=== PATIENT | female | born 1960 | race Hispanic/Latino ===

== ENCOUNTER 2022-11-22 09:59 | Outpatient (CLI) | payer BC | END 2022-11-22 10:00 | disposition home or self-care (01) | LOC: CSHMAMMO 09:59 | PROVIDERS: ATTEND Obstetrics & Gynecology | DX: Z12.31 Encounter for screening mammogram for malignant neoplasm of breast (principal); Z80.3 Family history of malignant neoplasm of breast; Z90.11 Acquired absence of right breast and nipple; Z98.82 Breast implant status | CPT/HCPCS: 77063; 77067 ==

== ENCOUNTER 2022-12-05 10:43 | Outpatient (CLI) | payer BC | END 2022-12-05 10:44 | disposition home or self-care (01) | LOC: CSHMAMMO 10:43 | PROVIDERS: ATTEND Obstetrics & Gynecology | DX: Z13.820 Encounter for screening for osteoporosis (principal); M85.89 Other specified disorders of bone density and structure, multiple sites | CPT/HCPCS: 77080 ==

== ENCOUNTER 2023-03-13 07:49 | Outpatient (CLI) | payer BC | END 2023-03-13 07:50 | disposition home or self-care (01) | LOC: CSHULT 07:49 | PROVIDERS: ATTEND Internal Medicine Gastroenterology | DX: R07.89 Other chest pain (principal); R10.13 Epigastric pain; K82.4 Cholesterolosis of gallbladder | CPT/HCPCS: 76705 ==

== ENCOUNTER 2023-11-27 09:37 | Outpatient (CLI) | payer BC | END 2023-11-27 09:38 | disposition home or self-care (01) | LOC: CSHMAMMO 09:37 | PROVIDERS: ATTEND Obstetrics & Gynecology | DX: Z12.31 Encounter for screening mammogram for malignant neoplasm of breast (principal); Z80.3 Family history of malignant neoplasm of breast; Z90.13 Acquired absence of bilateral breasts and nipples; Z98.82 Breast implant status | CPT/HCPCS: 77063; 77067 ==

== ENCOUNTER 2024-12-09 11:33 | Outpatient (CLI) | payer BC | END 2024-12-09 11:34 | disposition home or self-care (01) | LOC: CSHMAMMO 11:33 | PROVIDERS: ATTEND Obstetrics & Gynecology | DX: Z12.31 Encounter for screening mammogram for malignant neoplasm of breast (principal); Z80.3 Family history of malignant neoplasm of breast; Z98.82 Breast implant status; Z90.11 Acquired absence of right breast and nipple | CPT/HCPCS: 77063; 77067 ==